=== PATIENT | male | born 1995 | race Asian ===

== ENCOUNTER 2017-06-20 21:09 | Emergency (ER) | payer BC ==
[~2017-06-20] VITALS: Ht 177.8 cm; Wt 87.1 kg
[2017-06-20 22:11] LABS: BASOPHIL % 0.1 % (0-2); PLATELET COUNT 216 x10^3mcL (130-400); RED CELL DISTRIBUTION WIDTH 13.3 % (11.5-14.5)
[2017-06-20 22:23] LABS: CARBON DIOXIDE 25.6 mmol/L (21-32); CHLORIDE SERUM 103 mmol/L (98-107); GFR1 > 60 mL/min; GLUCOSE SERUM 109 mg/dL (74-106); POTASSIUM SERUM 3.5 mmol/L (3.5-5.1); SODIUM SERUM 141 mmol/L (136-145)
[2017-06-20 22:52] VITALS: BP 110/72
== END 2017-06-20 22:52 | disposition left against medical advice (07) ==
LOC: ED 21:09
PROVIDERS: Emergency Medicine
DX: R55 Syncope and collapse (principal)
CPT/HCPCS: 36415; 85378; J7030